=== PATIENT | male | born 1950 | race Caucasian/White ===

== ENCOUNTER 2024-08-24 09:50 | Emergency (ER) | payer MEDICARE, OTHER ==
[2024-08-24] MEDS ORDERED: Sodium Chloride 0.9% 10 ML Syringe FLUSH PRN (10:20)
[2024-08-24 10:27] LABS: BASOPHILS ABSOLUTE AUTO 0.07 10^3/uL (0.00-0.10); EOSINOPHILS ABSOLUTE AUTO 0.51 10^3/uL (0.10-0.30); EOSINOPHILS PERCENT AUTO 7.3 % (1.0-3.0); HEMATOCRIT 47.7 % (40.0-52.0); HEMOGLOBIN 16.2 g/dL (13.0-17.0); IMMATURE GRAN ABSOLUTE AUTO 0.02 10^3/uL (0.00-0.04); IMMATURE GRAN PERCENT AUTO 0.3 % (0.0-0.4); LYMPHOCYTES ABSOLUTE AUTO 1.03 10^3/uL (1.00-4.00); LYMPHOCYTES PERCENT AUTO 14.8 % (20.0-40.0); MEAN CORPUSCULAR HEMOGLOBIN 31.3 pg (27.0-31.0); MEAN CORPUSCULAR VOLUME 92.1 fL (82.0-92.0); MEAN PLATELET VOLUME 9.3 fL (7.4-10.4); MONOCYTES ABSOLUTE AUTO 0.67 10^3/uL (0.10-0.80); MONOCYTES PERCENT AUTO 9.6 % (2.0-8.0); NEUTROPHILS ABSOLUTE AUTO 4.65 10^3/uL (2.50-7.00); PLATELET COUNT,PLT 237 10^3/uL (150-400); RED BLOOD CELL COUNT 5.18 10^6/uL (4.50-6.00); RED CELL DISTRIBUTION WIDTH 13.6 % (11.5-14.5); WHITE BLOOD CELL COUNT,WBC 6.95 10^3/uL (5.00-10.00)
[2024-08-24 10:31] VITALS: BP 114/62; PULSE 73
[2024-08-24 10:43] LABS: ALBUMIN 3.16 g/dL (3.40-5.00); ANION GAP 13.8 mmol/L (5-15); BILIRUBIN TOTAL 1.8 mg/dL (0.2-1.0); C-REACTIVE PROTEIN 1.5 mg/dL (0.00-0.50); CALCIUM 8.4 mg/dL (8.7-10.3); CARBON DIOXIDE,CO2 28.4 mmol/L (21.0-32.0); CREATININE 0.97 mg/dL (0.51-1.17); EST CRCL DRUG DOSING (CG) 54.25 mL/min; POTASSIUM,K 4.2 mmol/L (3.5-5.1)
== END 2024-08-24 14:05 | disposition home or self-care (01) ==
LOC: KA.ED 09:50
DX: R07.89 Other chest pain (principal); I25.10 Atherosclerotic heart disease of native coronary artery without angina pectoris; I25.810 Atherosclerosis of coronary artery bypass graft(s) without angina pectoris; Z79.899 Other long term (current) drug therapy; Z95.5 Presence of coronary angioplasty implant and graft
CPT/HCPCS: 36415; 71045; 80053; 82150; 83880; 84484; 85025; 85379; 86140; 99284